=== PATIENT | female | born 1975 | race Caucasian/White ===

== ENCOUNTER → 2025-03-18 | Outpatient (CLI) | payer MEDICAID, SELFPAY ==
--- NOTE | 2025-03-18 09:08 | XR_ITS ---
Examination: Esophagram standard Upright PA chest single view Fluoroscopy 31 spot fluoroscopic films of the esophagus Date and time: March 18, 2025 1015 hours INDICATIONS: Difficulty swallowing 2 months. TECHNIQUE AND FINDINGS: Upright PA chest demonstrates normal heart size, lungs are clear Patient swallowed thin barium with 31 spot fluoroscopic films of the esophagus obtained Primary peristaltic esophageal waves noted Secondary tertiary esophageal contractions noted Moderate intermittent gastroesophageal reflux No stricture at the gastroesophageal junction History gastric surgery with no anastomotic narrowing into the small bowel Fluoroscopy 0.1 minute radiation dose 41.30 milligray IMPRESSION: Esophageal dysmotility, numerous secondary and tertiary esophageal contractions Moderate intermittent gastroesophageal reflux There is no stricture at the gastroesophageal junction
== END | disposition home or self-care (01) ==
PROVIDERS: PCP Family Medicine; Referring Provider Family Medicine; Visit Provider Family Medicine
DX: K21.9 Gastro-esophageal reflux disease without esophagitis (principal); K22.89 Other specified disease of esophagus
CPT/HCPCS: 74220; A4649